=== PATIENT | female | born 1985 | race Caucasian/White ===

== ENCOUNTER 2020-10-20 17:49 | Outpatient (CLI) | payer OTHER, MEDICAID, SELFPAY | END 2020-10-20 18:42 | disposition home or self-care (01) | LOC: OB 10-21 07:11 | PROVIDERS: Referring Provider Family Medicine; Visit Provider Family Medicine | DX: O26.893 Other specified pregnancy related conditions, third trimester (principal); R07.81 Pleurodynia; Z3A.28 28 weeks gestation of pregnancy | CPT/HCPCS: 59025; G0378; G0379 ==

== ENCOUNTER → 2020-10-29 08:33 | Outpatient (CLI) | payer OTHER, MEDICAID, SELFPAY ==
--- NOTE | 2020-10-29 08:36 | DI.US.S_ITS ---
PROCEDURE: US OB LIMITED INDICATIONS: FOLLOW-UP PREVIA OUTSIDE/PRIOR DATING DATA: Last menstrual period (LMP): 04/05/2020. LMP-based estimated date of delivery (KAITLIN): 01/10/2021. First dating scan (date and location): 08/19/2020 at . Estimated date of delivery (KAITLIN) from first dating scan: 01/03/2021. TECHNIQUE: Real-time scanning was performed of the fetuses, with image documentation and biometric measurements. Endovaginal scanning: Performed COMPARISON: Outside Facility, RG, US OB DETAILED SGL FETUS, 08/19/2020, 9:50. FINDINGS: There is a single living intrauterine gestation. Based on the initial outside ultrasound, the estimated gestational age is 30 weeks 4 days. cardiac activity is present with heart rate 131 BPM. Amniotic fluid index is 14.8 cm. Placenta is posterior without previa. The inferior margin of the placenta is 4.2 cm from the internal os. Note is made of a nabothian cyst measuring 2.7 by 1.7 x 3.2 cm. IMPRESSION: 1. A single living intrauterine gestation with an estimated gestational age 30 weeks 4 days based on the initial outside dating ultrasound. 2. Placenta previa is resolved. The inferior margin of the placenta measures 4.2 cm from the internal os. Dictated by: Claudine Davis M.D. on 10/29/2020 at 15:17 Approved by: Claudine Davis M.D. on 10/29/2020 at 15:23
[2020-10-29 09:23] LABS: Hematocrit 37.3 % (36-46); Hemoglobin 12.8 g/dL (12.0-16.0)
[2020-10-29 10:33] LABS: GTT (PREG) 1 Hour PP 50gm Dose 122 mg/dL (76-139)
== END ==
PROVIDERS: Referring Provider Family Medicine; Visit Provider Family Medicine
DX: O44.02 Complete placenta previa NOS or without hemorrhage, second trimester (principal); Z3A.27 27 weeks gestation of pregnancy
CPT/HCPCS: 36415; 76815; 76817; 82950; 85014; 85018

== ENCOUNTER → 2020-12-15 10:21 | Outpatient (CLI) | payer OTHER, MEDICAID, SELFPAY ==
[2020-12-16 07:55] LABS: Strep Grp B PCR POS for Grp B Strep
== END ==
PROVIDERS: Visit Provider Family Medicine
DX: Z34.90 Encounter for supervision of normal pregnancy, unspecified, unspecified trimester (principal); Z3A.36 36 weeks gestation of pregnancy
CPT/HCPCS: 87653

== ENCOUNTER 2020-12-19 06:05 | Observation (INO) | payer OTHER, MEDICAID, SELFPAY ==
--- NOTE | 2020-12-19 06:36 | PM.OBTRLD ---
Visit Information Visit Information Date of evaluation: 12/19/20 Reason for Evaluation: Yes other Comments/Additional reasons for admission: Patient is a 27-year-old G1 para 0 at 37 weeks who comes in with complaints of right upper quadrant abdominal pain since Monday. Pain is severe in intensity constant. Made worse with position changes. Not associated with nausea vomiting food does not make it worse. Patient saw her massage therapist did not really help. She also tried heat different position changes. She has associated symptoms of shortness of breath. Some [place] contractions. She has not complained of headache or blurry vision she is not complaining of significant swelling. record reviewed. [facility] Medical History Anxiety Asthma Bronchitis Depression Former smoker GERD (gastroesophageal reflux disease) (~2017) Migraines Mitral valve prolapse (~2014) Surgical History History of mandibular surgery (~2018) History of placement of ear tubes [place] teeth extracted (~2006) Family History Mother Twin , mate stillborn Anxiety Depression Paranoid schizophrenia COPD (chronic obstructive pulmonary disease) Former smoker Adopted person Father COPD (chronic obstructive pulmonary disease) Smoker Grandmother Unknown family medical history Grandfather Unknown family medical history Grandmother Ovarian cancer Grandfather Unknown family medical history Family/Other Diabetes mellitus Brother Asthma Social History marital status: household members: spouse lives independently: Yes caregiver/support person: No housing: house pets and animals: No education level: college (AA degree.) occupational status: unemployed current occupational exposures/hazards: No special polo needs: No seatbelt use: always do you feel safe at home: Yes Smoking Status: Former smoker (Smoked until 2011. ) Tobacco: How many years used: 6 quit status: has quit before second hand exposure: No alcohol intake: former (Rare to occasional when not . ) substance use type: marijuana (Quit with .) during the past year weight has: remained stable well-balanced diet: daily or most days daily servings fruits/ve-4 caffeine: No Type(s) of exercise: walking, other (Stretches on exercise ball. ) and normal ROM and activity frequency: daily duration: 15-30 minutes/day Exam Vital Signs (past 8 hours): . General: Alert no apparent distress. Affect is appropriate. Анна it is uncomfortable. HEENT: Neck is supple without lymphadenopathy pupils equal round and reactive. Cardio: S1-S2 regular rate and rhythm. Respiratory: Lungs clear to auscultation. Abdomen: Gravid. Extremities: Normal deep tendon reflexes trace edema. [place]: Sporadic contractions which are not felt by the patient heart tones: heart tones 135 Diagnosis, Plan/Disposition Plan/Disposition Plan: 35-year-old G1 para 0 at 37 weeks gestational age with right upper quadrant pain. heart tracings look good. Some mild intermittent correct contractions patient's blood pressure is stable she is not having visual changes or headache. Would recommend ordering a liver enzyme panel. An ultrasound to rule out significant gallbladder disease. Provide some Tylenol for pain relief and hydrocodone if needed. Will follow with ultrasound results and laboratory tests.
--- NOTE | 2020-12-19 06:37 | DI.US.S_ITS ---
PROCEDURE: US ABDOMEN LIMITED INDICATIONS: RIGHT UPPER QUADRANT/FLANK PAIN TECHNIQUE: Real-time focused scanning was performed of the abdomen, with image documentation. COMPARISON: None. FINDINGS: The liver is prominent size and demonstrates normal echogenicity. No findings of gallstones or sludge are seen. The gallbladder wall is not thickened, measuring 3 mm or less. No specific pericholecystic fluid is seen. The sonographic Sofia sign is negative. There is no biliary dilatation, the common bile duct measures 6 mm. No significant pancreatic abnormality is seen on these images. The right kidney demonstrates severe hydronephrosis, with the proximal ureter measuring 1.5 cm. There is a stone seen within the proximal ureter that measures 8 mm, which appears nonobstructing. This patient is , with a measured heartbeat of 137 beats per minute. IMPRESSION: There is severe right-sided hydronephrosis, with the proximal ureter measuring 1.5 cm. An 8 mm stone is seen within the proximal ureter, which appears nonobstructing. Dictated by: Anil Crouch M.D. on 12/19/2020 at 7:14 Approved by: Anil Crouch M.D. on 12/19/2020 at 7:17
[2020-12-19 07:05] LABS: Alanine Aminotransferase 15 IU/L (<35); Albumin 3.2 g/dL (3.5-5.0); Albumin Globulin Ratio 1.1 (1.0-2.8); Alkaline Phosphatase 112 U/L (38-126); Aspartate Aminotransferase 26 IU/L (14-36); Bilirubin Total 0.4 mg/dL (0.2-1.3); Bilirubin Unconjugated 0.3 mg/dL (0.0-1.1); Globulin 2.9 g/dL (1.7-4.1); HEMOLYSIS < 15 (0-50); Total Protein 6.1 g/dL (6.3-8.2)
[2020-12-19] MEDS: ACETAMINOPHEN 325 MG TABLET 650 MG PO (07:19)
[2020-12-19 08:45] LABS: RBC Urine None Seen (0-5/HPF)
[2020-12-19] MEDS: OXYCODONE IR 5 MG TABLET PO (08:50)
[2020-12-19 08:59] LABS: Appearance Urine UA CLEAR; Bilirubin Urine UA NEGATIVE (NEGATIVE); Color Urine UA YELLOW; Glucose Urine UA NEGATIVE (Negative); Ketones Urine UA NEGATIVE (NEGATIVE); Leukocyte Esterase Urine UA 2+ (NEGATIVE); Nitrite Urine UA NEGATIVE (Negative); Occult Blood Urine UA NEGATIVE (Negative); Protein Urine UA NEGATIVE (Negative); Specific Gravity Urine UA <=1.005 (1.000-1.035); Urobilinogen Urine UA 0.2 E.U./dL (0.2)
[2020-12-19 09:01] LABS: pH Urine UA 6.5 (4.5-8.0)
[2020-12-19 09:09] LABS: Bacteria Urine Moderate (10-30); Culture Indicated Urine Specimen Cultured; Squamous Epithelial Cell Urine 1-5 /HPF (0-5/HPF); WBC Urine 5-10/HPF (0-5/HPF)
[2020-12-22 11:03] LABS: BUN Creatinine Ratio 13.3 (6-22); Blood Urea Nitrogen 6 mg/dL (7-17); Carbon Dioxide 22 mmol/L (22-32); Chloride 107 mmol/L (98-107); Estimated Glomerular Filt Rate > 60.0 mL/min (>60); Glucose 85 mg/dL (70-100); Potassium 3.8 mmol/L (3.4-5.1); Sodium 134 mmol/L (137-145)
== END 2020-12-19 09:31 | disposition home or self-care (01) ==
PROVIDERS: Admitting Provider Family Medicine; Referring Provider Family Medicine; Visit Provider Family Medicine
DX: O26.893 Other specified pregnancy related conditions, third trimester (principal); N13.2 Hydronephrosis with renal and ureteral calculous obstruction; Z3A.37 37 weeks gestation of pregnancy
CPT/HCPCS: 36415; 59025; 76705; 80048; 80076; 81001; 87086; G0378; G0379

== ENCOUNTER 2020-12-28 18:34 | Observation (INO) | payer OTHER, MEDICAID, SELFPAY ==
[2020-12-28 20:13] VITALS: BP 102/67
[2020-12-28 21:36] LABS: COVID19 - ADMIT (NP swab/PCR) Negative (Negative)
--- NOTE | 2020-12-29 07:19 | P.HPOB_ITS ---
OB HPI Date/Time Date of admission: 12/29/20 Date Patient Seen: 12/29/20 Time Patient Seen: 07:30 History of Present Condition Chief complaint: : 1 Para: 0 Estimated Date of Delivery: 01/09/21 Estimated Gestational Age (weeks): 38w3d Narrative: Mally Tobias is a 35 year old at 38 weeks and 2 days here for induction due to symptomatic nephrolithiasis diagnosed at 37 weeks. She has been managing with Tylenol and rare oxycodone. She is also taking Flomax to help facilitate stone passage but no success yet. Case was discussed with Dr. Nieto with medical artist who recommended induction then referral to Urology for intervention on the stone. Patient has been without signs of infection and pain has been manageable with primarily Tylenol as above. has been uncomplicated otherwise. She does have a history of psychiatric hospitalization last fall but depression has been quite stable thr oughout the without medication. There was a partial placenta previa on her 20 week ultrasound which resolved on follow-up imaging. She transferred care from [facility] at 27 weeks. Indications Indication for induction OB: medical complication (Nephrolithiasis) History of Present care: initiated at week # (7), number of visits (17) and pounds weight gain (55) Dating criteria: LMP confirmed by 1st trimester US Ultrasounds: normal mid trimester US (Partial previa resolved on follow up US) Obstetrical complications: none Medical complications: other (Nephrolithiasis) Preadmission Labs Blood type: A (+) positive -: Antibody screen: negative, GBS status: positive, HBsAG: negative and HIV: negative -: Chlamydia screen: not detected and Gonorrhea screen: not detected -: Rubella: immune HCT: 37.3 PAP: Normal Quad screen: Normal Urine: Neg 1 hr GTT: 122 Evaluation Evaluation Baseline heart rate: 125 Variability: Moderate (11-25) monitor accelerations: Present Monitor Decelerations: Absent Contraction Frequency (minutes): 2 Uterine Contraction Intensity: Moderate Status: Category l Laboratory results: Laboratory Tests 12/28/20 12/28/20 20:05 20:30 SARS-CoV-2 (PCR) Negative Blood Type A Positive Antibody Screen Negative [facility] Medical History Anxiety Asthma Bronchitis Depression Former smoker GERD (gastroesophageal reflux disease) (~2017) Migraines Mitral valve prolapse (~2014) Surgical History History of mandibular surgery (~2018) History of placement of ear tubes [place] teeth extracted (~2006) Family History Mother Twin , mate stillborn Anxiety Depression Paranoid schizophrenia COPD (chronic obstructive pulmonary disease) Former smoker Adopted person Father COPD (chronic obstructive pulmonary disease) Smoker Grandmother Unknown family medical history Grandfather Unknown family medical history Grandmother Ovarian cancer Grandfather Unknown family medical history Family/Other Diabetes mellitus Brother Asthma Social History marital status: household members: spouse lives independently: Yes caregiver/support person: No housing: house pets and animals: No education level: college (AA degree.) occupational status: unemployed current occupational exposures/hazards: No special polo needs: No seatbelt use: always do you feel safe at home: Yes Smoking Status: Former smoker Tobacco: How many years used: 6 quit status: has quit before second hand exposure: No alcohol intake: former (Rare to occasional when not . ) substance use type: marijuana (Quit with .) during the past year weight has: remained stable well-balanced diet: daily or most days daily servings fruits/ve-4 caffeine: No Type(s) of exercise: walking, other (Stretches on exercise ball. ) and normal ROM and activity frequency: daily duration: 15-30 minutes/day Meds Home Medications and Allergies Home Medications Medication Instructions Recorded Confirmed Type prenat.vits,win,[id number] 1 tab PO DAILY #30 tab 10/12/20 12/28/20 Rx ondansetron HCl [Zofran] 4 mg PO Q8H PRN #7 tab 12/19/20 12/28/20 Rx oxycodone 5 mg PO TID PRN #20 cap 12/19/20 12/28/20 Rx tamsulosin 0.4 mg capsule 0.4 mg PO BEDTIME #30 cap 12/22/20 12/28/20 Rx Allergies Allergy/AdvReac Type Severity Reaction Status Date / Time hydrocodone AdvReac Intermediate vomiting Verified 10/08/20 10:08 Review of Systems Review of Systems ROS: Yes All systems reviewed with the patient and are negative except as otherwise documented Exam Vital Signs (past 8 hours): Temperature 36.3? blood pressure 109/59 heart rate 80 Const General: healthy appearing and comfortable [facility] Head: normal to inspection Ears: hearing grossly normal bilaterally Nose: external nose normal Face and sinus: normal facial exam Mouth: oral mucosae normal Eyes General: appearance normal, both eyes and all related structures Neck Neck: normal visual inspection Resp Effort & Inspection: normal respiratory effort Auscultation: clear to auscultation bilaterally Cardio Rate: regular rate Rhythm: regular rhythm Heart Sounds: no murmurs GI Other: Gravid External Female Exam: normal external appearance Manual OB Exam: dilated fingertip, effaced 75%, station -1 and other (Very uncomfortable with exams) Presentation: vertex Estimated Weight (lbs): 7 Back/Spine/Pelvis Back: normal to inspection Skin General: no rashes or lesions noted Extrem General: normal to inspection and no pedal edema Objective Labs Labs: Laboratory Results - last 24 hr 12/28/20 12/28/20 20:05 20:30 SARS-CoV-2 (PCR) Negative Blood Type A Positive Antibody Screen Negative Assessment and Plan Assessment and Plan Assessment and Plan narrative: Patient is a 35-year-old at 38 weeks and 3 days here for induction due to symptomatic nephrolithiasis diagnosed 37 weeks. Plan is to see Urology after delivery for possible intervention on the stone. She came in last night for Cervidil and has been shahbaz for several hours, just now beginning to feel more painful. Cervical exam this morning is FT/75/-1 posterior and soft. Considered placing a Garg bulb for further cervical ripening however she is quite uncomfortable with all exams and unlikely to tolerate Garg bulb placement. Since she is shahbaz and becoming more uncomfortable, will begin Pitocin. She is GBS positive so will plan to start penicillin once she is more active. She desires an epidural eventually.
[2020-12-29 09:00] LABS: Add Manual Diff / Slide Review NO; Basophils Absolute Auto 0 /uL (0-100); Basophils Percent Auto 0.3 % (0-2); Eosinophils Absolute Auto 100 /uL (0-450); Eosinophils Percent Auto 0.7 % (2-4); Hematocrit 34.2 % (36-46); Hemoglobin 11.3 g/dL (12.0-16.0); Lymphocytes Absolute Auto 1500 /uL (1100-4500); Lymphocytes Percent Auto 18.3 % (25-40); Mean Corpuscular Hemoglobin 28.4 PG (26-34); Mean Corpuscular Volume 86.1 fL (80-100); Monocytes Absolute Auto 600 /uL (0-900); Monocytes Percent Auto 7.5 % (3-14); Neutrophils Absolute Auto 5900 /uL (1500-7000); Neutrophils Percent Auto 73.2 % (50-75); Platelet Count 260 X10^3/uL (150-400); Red Blood Cell Count 3.97 X10^6/uL (4.0-5.2); Red Cell Distribution Width 14.6 % (11.6-14.8)
[2020-12-29] MEDS: OXYTOCIN PREMIX 30 UNIT/500 ML PLAST..BAG IV (09:17)
[2020-12-29] MEDS: LACTATED RINGERS 1,000 ML 100 ML IV (09:18)
--- NOTE | 2020-12-29 13:43 | P.DS_ITS ---
Discharge Providers Provider Date of admission: 12/28/20 18:34 Discharge Date: 12/29/20 Primary care physician: Doctor Raiza MD Discharge provider: Leela Chatterjee DO Summary Hospital Course Date Patient Seen: 12/29/20 Time Patient Seen: 13:00 Diagnoses: 38 weeks of Nephrolithiasis affecting Hospital Course: Patient is a 35-year-old at 38 weeks and 3 days gestation who came in for induction due to nephrolithiasis. She received Cervidil followed by Pitocin this morning. She was shahbaz regularly though not painfully. Sometime during the morning she went to urinate and passed a pea-sized stone. After passing the stone it was immediately easier to void and her right flank pain subsided considerably. Cervix was still quite posterior despite several hours of Pitocin and exam very uncomfortable for her. We discussed that since she passed the kidney stone and her flank pain significantly improved, there was no indication to continue the induction. She expressed her understanding and was excited to be able to go home and avoid induction. We will see her next week as scheduled. She will return to the center for regular painful contractions, leaking of fluid or vaginal bleeding. Both she and her were in agreement and appreciative of the plan. Fetus was category 1 throughout her time in the center. Discharge Diagnosis (1) 38 weeks gestation of : Status: Acute (2) Nephrolithiasis: Status: Acute Status at Discharge Cognitive/behavioral status at discharge: at baseline, oriented Overall status at discharge: patient is back to baseline Time Spent with Patient Time attestation: Total time spent providing and/or coordinating discharge services: Time spent: Less than 30 minutes Objective Labs Result Diagrams: 12/29/20 08:45 Labs: Laboratory Results - last 24 hr 12/28/20 12/28/20 12/29/20 20:05 20:30 08:45 WBC 8.0 RBC 3.97 L Hgb 11.3 L Hct 34.2 L MCV 86.1 MCH 28.4 MCHC 33.0 RDW 14.6 Plt Count 260 Neut % (Auto) 73.2 Lymph % (Auto) 18.3 L [place] % (Auto) 7.5 Eos % (Auto) 0.7 L Baso % (Auto) 0.3 Neut # (Auto) 5900 Lymph # (Auto) 1500 [place] # (Auto) 600 Eos # (Auto) 100 Baso # (Auto) 0 SARS-CoV-2 (PCR) Negative Blood Type A Positive Antibody Screen Negative Discharge Plan Discharge Plan Patient Disposition: Home Discharge orders & Medications Prescriptions: Continued prenat.vits,win,mkk-kwuh-pzlfr Tablet 1 tab PO DAILY Qty: 30 RF: 6 Discontinued tamsulosin 0.4 mg capsule 0.4 mg PO BEDTIME Qty: 30 RF: 0 oxycodone 5 mg capsule 5 mg PO TID PRN (Reason: pain) Qty: 20 RF: 0 ondansetron HCl [Zofran] 4 mg tablet 4 mg PO Q8H PRN (Reason: nausea and vomiting) Qty: 7 RF: 0 Follow up/Referrals: Raiza,Doctor, MD [Primary Care Provider] - Visit Report/Discharge Packet Visit Report Forms: Patient Portal/API, Stroke Signs & Symptoms Discharge Data Primary Care Provider: Doctor Raiza Attending Provider: Leela Chatterjee Admit Date/Time: 12/28/20 18:34 Discharges patient from system. Discharge Date/Time: 12/29/20 13:46
== END 2020-12-29 13:46 | disposition home or self-care (01) ==
PROVIDERS: Admitting Provider Family Medicine; Referring Provider Family Medicine; Visit Provider Family Medicine
DX: O99.891 Other specified diseases and conditions complicating pregnancy (principal); N20.0 Calculus of kidney; Z3A.38 38 weeks gestation of pregnancy; Z20.822 Contact with and (suspected) exposure to COVID-19; O99.820 Streptococcus B carrier state complicating pregnancy
CPT/HCPCS: 36415; 59025; 59050; 59200; 85025; 86850; 86900; 86901; 87635; 96360; C9803; G0378; G0379; J2590

== ENCOUNTER 2021-01-12 11:50 | Outpatient (CLI) | payer OTHER, MEDICAID, SELFPAY ==
--- NOTE | 2021-01-12 13:50 | PM.OBTRLD ---
Visit Information Visit Information Date of evaluation: 01/12/21 Primary OB Provider: Leela Chatterjee Reason for Evaluation: Yes non-stress test non-stress test reason: other (Postdates) Vital Signs Vital Signs: Blood pressure 110/68 heart rate 96 PFSH Medical History Anxiety Asthma Bronchitis Depression Former smoker GERD (gastroesophageal reflux disease) (~2017) Migraines Mitral valve prolapse (~2014) Surgical History History of mandibular surgery (~2018) History of placement of ear tubes [place] teeth extracted (~2006) Family History Mother Twin , mate stillborn Anxiety Depression Paranoid schizophrenia COPD (chronic obstructive pulmonary disease) Former smoker Adopted person Father COPD (chronic obstructive pulmonary disease) Smoker Grandmother Unknown family medical history Grandfather Unknown family medical history Grandmother Ovarian cancer Grandfather Unknown family medical history Family/Other Diabetes mellitus Brother Asthma Social History marital status: household members: spouse lives independently: Yes caregiver/support person: No housing: house pets and animals: No education level: college (AA degree.) occupational status: unemployed current occupational exposures/hazards: No special polo needs: No seatbelt use: always do you feel safe at home: Yes Smoking Status: Former smoker Tobacco: How many years used: 6 quit status: has quit before second hand exposure: No alcohol intake: former (Rare to occasional when not . ) substance use type: marijuana (Quit with .) during the past year weight has: remained stable well-balanced diet: daily or most days daily servings fruits/ve-4 caffeine: No Type(s) of exercise: walking, other (Stretches on exercise ball. ) and normal ROM and activity frequency: daily duration: 15-30 minutes/day Evaluation Evaluation Baseline heart rate: 140 Variability: Moderate (11-25) monitor accelerations: Present Monitor Decelerations: Absent Category of Tracing: Reactive Diagnosis, Plan/Disposition Final Diagnosis (1) 40 weeks gestation of : Status: Acute Plan/Disposition Plan: 35-year-old at 40 weeks and 3 days gestation. NST reactive. She is scheduled for post-dates induction on 01/18/21 if not delivered. Will repeat an NST at the end of this week when she is 41 weeks. OB Disposition: home
== END 2021-01-12 12:30 | disposition home or self-care (01) ==
LOC: OB 01-13 11:36
PROVIDERS: Referring Provider Family Medicine; Visit Provider Family Medicine
DX: O48.0 Post-term pregnancy (principal); Z3A.40 40 weeks gestation of pregnancy
CPT/HCPCS: 59025; G0378; G0379

== ENCOUNTER 2021-01-15 12:38 | Outpatient (CLI) | payer OTHER, MEDICAID, SELFPAY ==
--- NOTE | 2021-01-15 13:27 | PM.OBTRLD ---
Visit Information Visit Information Date of evaluation: 01/15/21 Primary OB Provider: Leela Chatterjee Reason for Evaluation: Yes non-stress test non-stress test reason: other (Postdates) Vital Signs Vital Signs: Blood pressure 36.3 heart rate 102 blood pressure 111/76 [facility] Medical History Anxiety Asthma Bronchitis Depression Former smoker GERD (gastroesophageal reflux disease) (~2017) Migraines Mitral valve prolapse (~2014) Surgical History History of mandibular surgery (~2018) History of placement of ear tubes [place] teeth extracted (~2006) Family History Mother Twin , mate stillborn Anxiety Depression Paranoid schizophrenia COPD (chronic obstructive pulmonary disease) Former smoker Adopted person Father COPD (chronic obstructive pulmonary disease) Smoker Grandmother Unknown family medical history Grandfather Unknown family medical history Grandmother Ovarian cancer Grandfather Unknown family medical history Family/Other Diabetes mellitus Brother Asthma Social History marital status: household members: spouse lives independently: Yes caregiver/support person: No housing: house pets and animals: No education level: college (AA degree.) occupational status: unemployed current occupational exposures/hazards: No special polo needs: No seatbelt use: always do you feel safe at home: Yes Smoking Status: Former smoker Tobacco: How many years used: 6 quit status: has quit before second hand exposure: No alcohol intake: former (Rare to occasional when not . ) substance use type: marijuana (Quit with .) during the past year weight has: remained stable well-balanced diet: daily or most days daily servings fruits/ve-4 caffeine: No Type(s) of exercise: walking, other (Stretches on exercise ball. ) and normal ROM and activity frequency: daily duration: 15-30 minutes/day Evaluation Evaluation Baseline heart rate: 130 Variability: Moderate (11-25) monitor accelerations: Present Monitor Decelerations: Absent Uterine Contraction Intensity: Mild Category of Tracing: Reactive Diagnosis, Plan/Disposition Plan/Disposition Plan: 35-year-old 40 weeks and 6 days gestation here for post-dates testing. NST reactive. She is scheduled for induction in 2 days. OB Disposition: home
== END 2021-01-15 13:10 | disposition home or self-care (01) ==
LOC: LABOR 12:59 → OB 01-18 14:46
PROVIDERS: Referring Provider Family Medicine; Visit Provider Family Medicine
DX: O48.0 Post-term pregnancy (principal); Z3A.40 40 weeks gestation of pregnancy
CPT/HCPCS: 59025; G0378; G0379

== ENCOUNTER 2021-01-16 14:09 | Outpatient (CLI) | payer OTHER, MEDICAID, SELFPAY ==
--- NOTE | 2021-01-16 14:42 | P.TNLD_ITS ---
Visit Information Visit Information Date of evaluation: 01/16/21 Primary OB Provider: Leela Chatterjee On-call OB Provider: Kanchan Nieto Reason for Evaluation: Yes rupture of membranes Vital Signs Vital Signs: Temperature 36.2? blood pressure 101/64 rate 86 PFSH Medical History Anxiety Asthma Bronchitis Depression Former smoker GERD (gastroesophageal reflux disease) (~2017) Migraines Mitral valve prolapse (~2014) Surgical History History of mandibular surgery (~2018) History of placement of ear tubes [place] teeth extracted (~2006) Family History Mother Twin , mate stillborn Anxiety Depression Paranoid schizophrenia COPD (chronic obstructive pulmonary disease) Former smoker Adopted person Father COPD (chronic obstructive pulmonary disease) Smoker Grandmother Unknown family medical history Grandfather Unknown family medical history Grandmother Ovarian cancer Grandfather Unknown family medical history Family/Other Diabetes mellitus Brother Asthma Social History marital status: household members: spouse lives independently: Yes caregiver/support person: No housing: house pets and animals: No education level: college (AA degree.) occupational status: unemployed current occupational exposures/hazards: No special polo needs: No seatbelt use: always do you feel safe at home: Yes Smoking Status: Former smoker Tobacco: How many years used: 6 quit status: has quit before second hand exposure: No alcohol intake: former (Rare to occasional when not . ) substance use type: marijuana (Quit with .) during the past year weight has: remained stable well-balanced diet: daily or most days daily servings fruits/ve-4 caffeine: No Type(s) of exercise: walking, other (Stretches on exercise ball. ) and normal ROM and activity frequency: daily duration: 15-30 minutes/day Evaluation Evaluation Baseline heart rate: 130 Variability: Moderate (11-25) monitor accelerations: Present Monitor Decelerations: Absent Category of Tracing: Reactive Non-invasive Membranes Rupture Test: negative Diagnosis, Plan/Disposition Final Diagnosis (1) 41 weeks gestation of : Status: Acute Plan/Disposition Plan: 35-year-old at 41 weeks gestation with concern for rupture membranes. AmniSure negative. NST reactive. Follow-up as scheduled tomorrow night for post-dates induction or sooner if needed. OB Disposition: home
== END 2021-01-16 15:05 | disposition home or self-care (01) ==
LOC: OB 01-18 14:46
PROVIDERS: Referring Provider Family Medicine; Visit Provider Family Medicine
DX: Z03.71 Encounter for suspected problem with amniotic cavity and membrane ruled out (principal); O48.0 Post-term pregnancy; Z3A.41 41 weeks gestation of pregnancy
CPT/HCPCS: 59025; 84112; G0378; G0379

== ENCOUNTER 2021-01-18 07:19 | Inpatient (IN) | payer OTHER, MEDICAID, SELFPAY ==
--- NOTE | 2021-01-18 07:51 | P.HPOB_ITS ---
OB HPI Date/Time Date of admission: 01/18/21 Date Patient Seen: 01/18/21 Time Patient Seen: 07:35 History of Present Condition Chief complaint: OBSERVATION OF LABOR : 1 Para: 0 Estimated Date of Delivery: 01/09/21 Estimated Gestational Age (weeks): 41w2d Narrative: Mally Tobias is a 35 year old at 41 weeks and 2 days gestation here for postdates induction. complicated by nephrolithiasis starting at 37 weeks. She came in for induction at 38 weeks due to severe pain from nephrolithiasis and passed the stone so was discharged home undelivered. Since then she was done very well. Reports good FM and denies bleeding or leaking. has been uncomplicated otherwise. She does have a history of psychiatric hospitalization last fall but depression has been quite stable throughout the without medication. There was a partial placenta previa on her 20 week ultrasound which resolved on follow-up imaging. She transferred care from [facility] at 27 weeks. Indications Indication for induction OB: post dates History of Present care: good care, initiated at week # (7), number of visits (19) and pounds weight gain (55) Dating criteria: LMP confirmed by 1st trimester US Ultrasounds: normal mid trimester US (Partial previa resolved on follow up US) Obstetrical complications: none Medical complications: other (Nephrolithiasis) Preadmission Labs Blood type: A (+) positive -: Antibody screen: negative, GBS status: positive, HBsAG: negative, HIV: negative and RPR/VDLR: negative -: Chlamydia screen: not detected and Gonorrhea screen: not detected -: Rubella: immune HCT: 37.3 PAP: Normal Quad screen: Normal 1 hr GTT: 122 Evaluation Evaluation Baseline heart rate: 150 Variability: Moderate (11-25) monitor accelerations: Present Monitor Decelerations: Absent Category of Tracing: Reactive Cervical dilation (cm): 0 Cervical effacement (%): 60 station: -1 PFSH Medical History Anxiety Asthma Bronchitis Depression Former smoker GERD (gastroesophageal reflux disease) (~2017) Migraines Mitral valve prolapse (~2014) Surgical History History of mandibular surgery (~2018) History of placement of ear tubes [place] teeth extracted (~2006) Family History Mother Twin , mate stillborn Anxiety Depression Paranoid schizophrenia COPD (chronic obstructive pulmonary disease) Former smoker Adopted person Father COPD (chronic obstructive pulmonary disease) Smoker Grandmother Unknown family medical history Grandfather Unknown family medical history Grandmother Ovarian cancer Grandfather Unknown family medical history Family/Other Diabetes mellitus Brother Asthma Social History marital status: household members: spouse lives independently: Yes caregiver/support person: No housing: house pets and animals: No education level: college (AA degree.) occupational status: unemployed current occupational exposures/hazards: No special polo needs: No seatbelt use: always do you feel safe at home: Yes Smoking Status: Never smoker Tobacco: How many years used: 6 quit status: has quit before second hand exposure: No alcohol intake: former (Rare to occasional when not . ) substance use type: marijuana (Quit with .) during the past year weight has: remained stable well-balanced diet: daily or most days daily servings fruits/ve-4 caffeine: No Type(s) of exercise: walking, other (Stretches on exercise ball. ) and normal ROM and activity frequency: daily duration: 15-30 minutes/day Meds Home Medications and Allergies Home Medications Medication Instructions Recorded Confirmed Type prenat.vits,win,[id number] 1 tab PO DAILY #30 tab 10/12/20 01/18/21 Rx Allergies Allergy/AdvReac Type Severity Reaction Status Date / Time hydrocodone AdvReac Intermediate vomiting Verified 01/12/21 09:54 Review of Systems Review of Systems ROS: Yes All systems reviewed with the patient and are negative except as otherwise documented Exam Vital Signs (past 8 hours): Temperature 36.2? blood pressure 100/65 heart rate 99 Const General: healthy appearing and comfortable HENMT Head: normal to inspection Ears: hearing grossly normal bilaterally Nose: external nose normal Face and sinus: normal facial exam Mouth: oral mucosae normal Eyes General: appearance normal, both eyes and all related structures Neck Neck: normal visual inspection Resp Effort & Inspection: normal respiratory effort Auscultation: clear to auscultation bilaterally Cardio Rate: regular rate Rhythm: regular rhythm Heart Sounds: no murmurs GI Other: Gravid External Female Exam: normal external appearance Manual OB Exam: dilated fingertip, effaced (60) and station -1 Presentation: vertex Estimated Weight (lbs): 8 Back/Spine/Pelvis Back: normal to inspection Skin General: no rashes or lesions noted Extrem General: normal to inspection and no pedal edema Objective Labs Result Diagrams: 01/18/21 08:40 Assessment and Plan Assessment and Plan Assessment and Plan narrative: 35 year old at 41 weeks and 2 days for postdates induction. A+, GBS+. She was to come in last night for cervical ripening however was unable due to staffing issues in the center. Plan Cytotec for cervical ripening Will need GBS prophylaxis once in active labor Epidural upon request Anticipate vaginal delivery
[2021-01-18] MEDS: miSOPROStoL 25 MCG TABLET VAG ×2 (08:28→12:45)
[2021-01-18 09:05] LABS: Add Manual Diff / Slide Review NO; Basophils Absolute Auto 0 /uL (0-100); Basophils Percent Auto 0.5 % (0-2); Eosinophils Absolute Auto 100 /uL (0-450); Eosinophils Percent Auto 1.1 % (2-4); Hematocrit 31.9 % (36-46); Hemoglobin 10.6 g/dL (12.0-16.0); Lymphocytes Absolute Auto 1400 /uL (1100-4500); Lymphocytes Percent Auto 21.9 % (25-40); Mean Corpuscular HGB Conc 33.1 % (30-36); Mean Corpuscular Hemoglobin 27.7 PG (26-34); Mean Corpuscular Volume 83.5 fL (80-100); Monocytes Absolute Auto 500 /uL (0-900); Monocytes Percent Auto 8.3 % (3-14); Neutrophils Absolute Auto 4300 /uL (1500-7000); Neutrophils Percent Auto 68.2 % (50-75); Platelet Count 265 X10^3/uL (150-400); Red Blood Cell Count 3.82 X10^6/uL (4.0-5.2); Red Cell Distribution Width 15.1 % (11.6-14.8); White Blood Cell Count 6.3 X10^3/uL (4.5-11.0)
[2021-01-18 09:33] VITALS: BP 100/65
[2021-01-18 10:21] LABS: COVID19 - ADMIT (NP swab/PCR) Negative (Negative)
--- NOTE | 2021-01-18 17:26 | PM.OBPNLAB ---
Date/Time Date Patient Seen: 01/18/21 Time Patient Seen: 17:00 Pain Control Comments: Feeling cramping, rates pain 4-5/10. Pelvic Exam Dilation (cm): 2 Effacement (%): 80 station: 0 Contractions Contraction frequency (min): 2 Status status: Category l Heart Rate Baseline: 140 Monitor Accelerations: Present Monitor Decelerations: Absent Monitor Variability: Moderate Assessment and Plan Comments: 35 year old at 41+2 here for postdates induction. She is now shahbaz q2 min after 2 doses of Cytotec and feeling cramping. Dr. Carl consulted for parisi bulb placement since she is shahbaz too frequently for Cytotec or Pitocin. Discussed with patient and her that parisi bulb will either fall out at 4 cm, be removed with rupture of membranes or be removed after 12 hours. Will start GBS prophylaxis now.
[2021-01-18] MEDS: LACTATED RINGERS 1,000 ML 100 ML IV ×2 (17:50→22:14)
[2021-01-18] MEDS: PENICILLIN G POTASSIUM 5,000,000 UNIT in DEXTROSE 5% IN WATER 250 ML IV (17:50)
--- NOTE | 2021-01-18 20:25 | PM.AN.REGBLK ---
Regional Block Pre-procedure Procedure: Continuous Lumbar Epidural for L&D Attending OB provider: Leela Chatterjee PMH/ROS narrative: G1 induced post-dates, h/o previa but resolved on subsequent U/S, nephrolithiasis during . H/o MDD. Hx: No personal or family history of anesthesia problems. PSH/Anesthesia history narrative: none Exam narrative: MP2, RRR CTAB ASA Class: II Labs: Hct 31.9 % (36-46) L 01/18/21 08:40 Plt Count 265 X10^3/uL (150-400) 01/18/21 08:40 Medications: Current Medications Generic Name Dose Route Start Last Admin Trade Name Freq PRN Reason Stop Dose Admin Calcium Carbonate 1,000 mg 01/18/21 07:42 Calcium Carbonate 500 Mg Tab PO Q2HR PRN Dyspepsia Carboprost Tromethamine 250 mcg 01/18/21 07:42 Carboprost 250 Mcg/Ml Ampul IM Q90M PRN Bleeding Fentanyl 50 mcg 01/18/21 17:47 Fentanyl 100 Mcg/2 Ml Inj IV Q1H PRN Pain, Severe (7-10) Fentanyl 100 mcg 01/18/21 17:48 Fentanyl 100 Mcg/2 Ml Inj IV Q1H PRN Pain, Severe (7-10) Lactated Ringer's 1,000 mls @ 100 mls/hr 01/18/21 07:45 01/18/21 17:50 Lactated Ringers IV 100 mls/hr CONT KARTHIK Administration Oxytocin/Lactated Ringer's 30 unit in 500 mls @ 200 mls/hr 01/18/21 07:42 Oxytocin Premix IV CONT PRN Bleeding Protocol Oxytocin/Lactated Ringer's 30 unit in 500 mls @ 3 mls/hr 01/18/21 07:45 Oxytocin Premix IV TITRATE KARTHIK Protocol 3 MILLIUNIT/MIN Tranexamic Acid 1,000 mg/ 100 mls @ 200 mls/hr 01/18/21 07:42 Sodium Chloride IV NOW PRN Bleeding Penicillin G Potassium 3,000,000 unit in 50 mls @ 100 mls/hr 01/18/21 22:00 Penicillin G Potassium IV Q4H [id number] Methylergonovine Maleate 0.2 mg 01/18/21 07:42 Methylergonovine 0.2 Mg/Ml Vial IM NOW PRN Bleeding Methylergonovine Maleate 0.2 mg 01/18/21 07:42 Methylergonovine 0.2 Mg Tablet PO Q6HR PRN Heavy Bleeding Misoprostol 400 mcg 01/18/21 07:42 Misoprostol 200 Mcg Tablet SL NOW PRN Bleeding Misoprostol 800 mcg 01/18/21 07:42 Misoprostol 200 Mcg Tablet RI NOW PRN Bleeding Misoprostol 1,000 mcg 01/18/21 07:42 Misoprostol 200 Mcg Tablet RI NOW PRN Bleeding Misoprostol 25 mcg 01/18/21 09:00 01/18/21 12:45 Misoprostol 25 Mcg Tablet VAG 25 mcg Q4HR KARTHIK Administration Ondansetron HCl 4 mg 01/18/21 07:42 Ondansetron 4 Mg/2 Ml Inj IV Q4HR PRN Nausea And Vomiting Oxytocin 10 unit 01/18/21 07:42 Oxytocin 10 Unit/Ml Vial IM NOW PRN Bleeding Allergies: Allergies Allergy/AdvReac Type Severity Reaction Status Date / Time hydrocodone AdvReac Intermediate vomiting Verified 01/12/21 09:54 Procedure Insertion date: 01/18/21 Insertion time: 20:00 Prep/Local: betadine x3 (chloroprep) and 1% lidocaine Interspace: L2-3 Patient position: sitting Needle: 18 gauge Va Loss of resistance with: saline BIANKA at (cm): 5 Catheter placed at SKIN (cm): 10 Catheter in SPACE (cm): 5 Insertion: Yes CSF Initial Medications TEST DOSE: 1.5% lidocaine with epinephrine 1:200k (mL): 5 BOLUS DOSE (mL): 2 BOLUS DOSE med: other (10mcg fentanyl intrathecally, 90mcg fentanyl via epidural catheter) Infusion INFUSION: 0.0625% bupivacaine and with fentanyl 2 mcg/mL Initial rate (mL/hr): 12 Post-procedure Anesthesia time START: 19:44 Anesthesia time END: 02:54 Post-procedure Anesthesia Assessment: Yes CV function: HR/BP stable, Yes Resp function: RR/sat/airway adequate, Yes Post-op hydration adequate, Yes Pain control adequate, Yes Nausea & vomiting absent, Yes Temperature > 36 C, Yes Mental status appropriate and No Anesthesia complications
[2021-01-18] MEDS: PENICILLIN G POTASSIUM 3,000,000 UNIT/50 ML FROZ.PIGGY 100 UNIT IV (22:14)
[2021-01-19] MEDS: LIDOCAINE 1% 20 ML (03:15)
--- NOTE | 2021-01-19 03:23 | PM.OBPRVD ---
Labor & Delivery Delivery date: 01/19/21 Cervical ripening method: per misoprostal protocol Delivery augmentation: rupture of membranes Delivery monitor: external FHT Route of delivery: L&D Laceration Description: Vaginal - 2nd Degree Delivery repair: vicryl Estimated blood loss (mL): 400 Anesthesia Type: Epidural Narrative: VAGINAL DELIVERY NOTE Patient is a 35-year-old at 41 weeks and 3 days who gave on 01/19/21 at 2:54. KAITLIN: 01/09/21 Hospital problems: 41 weeks of GBS positive Epidural analgesia STAGE I: Labor Patient presented for post-dates induction and received Cytotec. After her second dose of Cytotec she was shahbaz regularly on her own though not uncomfortable. The decision was made to place Garg bulb for further cervical ripening since she was shahbaz too frequently for additional Cytotec or Pitocin. After placement patient became very uncomfortable. Spontaneous rupture membranes occurred at 6:30 p.m. and Garg bulb removed. Fluid was clear. Patient went on to receive an epidural with excellent pain control. She was complete at 11:52 p.m. heart tones were category 1 throughout stage I. Stage I duration 5 hours and 20 minutes. STAGE II: Delivery Patient was complete and pushed for 3 hours. Spontaneous vaginal delivery occurred at 2:54 a.m.. Infant was vertex and MANOLO. There was a double nuchal cord which was reduced and remainder of delivered. Infant was immediately placed on mother's abdomen after delivery. Cord was clamped and cut after 1 minutes delay. Apgars were 8 and 9. No resuscitation required beyond drying and stimulating. weight 3906 g. STAGE III: Placenta/Cord Placenta delivered at 3:03 a.m. after active management and appeared intact with a three-vessel cord. IV Pitocin bolus given after delivery. A short second-degree vaginal laceration was repaired in the usual fashion with 4-0 Vicryl. The superficial periurethral laceration was not repaired but hemostasis assured. Fundus was firm well below umbilicus after delivery. EBL: 400 mL. Needle and sponge counts were correct. The vagina was inspected and no items were left in situ. Patient was doing well with Dave, her and at bedside. Baby 1: gender: Male Presentation: vertex Placenta delivery description: Spontaneous Cord Vessel Description: Nuchal Cord (x2, reduced) score (1 min): 8 score (5 min): 9 Plan for aftercare: Routine care
[2021-01-19] MEDS: IBUPROFEN 600 MG TABLET PO ×4 (04:51→23:45)
[2021-01-19] MEDS: ACETAMINOPHEN 325 MG TABLET 650 MG PO ×4 (04:51→23:44)
[2021-01-19] MEDS: DERMOPLAST SPRAY 20% 60 ML 1 SPRAY TOP (04:55)
[2021-01-19 07:50] VITALS: BP 126/86
[2021-01-19] MEDS: PRENATAL VIT,CALC/IRON/FOLIC 1 TABLET 1 TAB PO (09:08)
[2021-01-19] MEDS: LANOLIN OINT 7 GM 1 APPLIC TOP (09:08)
[2021-01-19] MEDS: DOCUSATE 100 MG CAPSULE PO (09:08)
[2021-01-19 11:52] VITALS: TEMP 37.4
[2021-01-19 11:55] VITALS: TEMP 37.4
[2021-01-19 17:38] VITALS: TEMP 37.4
[2021-01-19 17:40] VITALS: TEMP 37.4
--- NOTE | 2021-01-20 06:47 | P.DS_ITS ---
Discharge Providers Provider Date of admission: 01/18/21 07:19 Discharge Date: 01/20/21 Primary care physician: Doctor Raiza MD Consults: 01/20/21 03:26 Consult to Horticulture Superintendent Routine Comment: Discharge provider: Leela Chatterjee DO Summary Hospital Course Diagnoses: 41 weeks of Spontaneous vaginal delivery GBS positive Epidural analgesia Hospital Course: 35 year old G1 now P1 after uncomplicated at 41 weeks and 4 days on 01/19/21. Patient was brought in for postdates induction and progressed well after 2 doses of Cytotec and parisi bulb. She received an epidural with good pain control and went on to deliver a vigorous male. She was GBS positive and received adequate antibiotic prophylaxis prior to delivery. course uncomplicated. Patient was ambulating, voiding, eating and passing flatus. Vaginal bleeding decreasing. Pain control with ibuprofen and Tylenol. was off to a good start with support and nipple shield. Patient advised to call for bleeding, severe pain or bleeding through a pad an hour. Follow up in six weeks or sooner if needed. Peripartum Data Infant Delivery Method: Natural Vaginal Laceration Description: Vaginal - 2nd Degree 1: Gender: Male Disposition of : home Discharge Diagnosis (1) 41 weeks gestation of : Status: Acute (2) Spontaneous vaginal delivery: Status: Acute Status at Discharge Cognitive/behavioral status at discharge: at baseline, oriented Functional status at discharge: independent ambulation Overall status at discharge: patient is progressing back to baseline Time Spent with Patient Time attestation: Total time spent providing and/or coordinating discharge services: Time spent: Less than 30 minutes Objective Labs Result Diagrams: 01/20/21 06:43 Exam Vital Signs (past 8 hours): Temperature 98.2 blood pressure 108/79 heart rate 76 respirations 18 Narrative Exam Narrative: General: Awake and alert, no acute distress. HEENT: NCAT, EOMI, moist oral mucosa CV: Regular rate and rhythm, no murmurs, rubs or gallops Lungs: CTAB, no wheezes, rales, or rhonchi Abdomen: Soft, nontender; bowel tones active; uterus firm 1 cm below umbilicus Extremities: Warm, no edema, 2+ pedal pulses bilaterally Discharge Plan Discharge Plan Patient Disposition: Home Discharge orders & Medications Prescriptions: New docusate sodium [DOK] 100 mg Capsule 100 mg PO DAILY Qty: 30 RF: 0 ibuprofen 600 mg Tablet 600 mg PO Q6HR PRN (Reason: Pain, Mild (1-3)) Qty: 30 RF: 0 Discontinued prenat.vits,win,[id number] Tablet 1 tab PO DAILY Qty: 30 RF: 6 Follow up/Referrals: Miscellaneous,Doctor, [Primary Care Provider] - Leela Chatterjee DO [Physician] - 6 Weeks (Follow up with Dr. Chatterjee on Monday03/01/21 at 10:45am) Visit Report/Discharge Packet Stand Alone Forms: Discharge: Care Visit Report Forms: Patient Portal/API, Stroke Signs & Symptoms Discharge Data Primary Care Provider: Makaylacellaneous,Doctor Discharges patient from system. Discharge Date/Time: 01/20/21 11:15
[2021-01-20 06:51] LABS: Hematocrit 26.4 % (36-46); Hemoglobin 8.7 g/dL (12.0-16.0)
[2021-01-20] MEDS: PRENATAL VIT,CALC/IRON/FOLIC 1 TABLET 1 TAB PO (07:57)
[2021-01-20] MEDS: IBUPROFEN 600 MG TABLET PO (07:58)
[2021-01-20] MEDS: DOCUSATE 100 MG CAPSULE PO (07:58)
[2021-01-20] MEDS: ACETAMINOPHEN 325 MG TABLET 650 MG PO (07:58)
[2021-01-20 12:08] VITALS: BP 126/86; TEMP 37.4
== END 2021-01-20 11:15 | disposition home or self-care (01) | DRG 560 ==
PROVIDERS: Admitting Provider Family Medicine; Referring Provider Family Medicine; Visit Provider Family Medicine
DX: O48.0 Post-term pregnancy (principal); Z3A.41 41 weeks gestation of pregnancy; Z37.0 Single live birth; O70.1 Second degree perineal laceration during delivery; O69.81X0 Labor and delivery complicated by cord around neck, without compression, not applicable or unspecified; O99.824 Streptococcus B carrier state complicating childbirth
CPT/HCPCS: 01967; 36415; 59050; 59409; 85014; 85018; 85025; 86850; 86900; 86901; 87635; C9803; G0379; J2540

== ENCOUNTER → 2022-07-06 12:23 | Outpatient (CLI) | payer OTHER, MEDICAID, SELFPAY ==
[2022-07-06 14:00] LABS: Influenza A - CEPHEID Flu A NEGATIVE (NEGATIVE); Influenza B - CEPHEID Flu B NEGATIVE (NEGATIVE); Respiratory Syncytial Virus Negative (Negative)
[2022-07-06 14:08] LABS: COVID-19 CEPHEID 4-PLEX PCR Negative (Negative)
== END ==
PROVIDERS: Visit Provider Registered Nurse
DX: R05.1 Acute cough (principal); Z20.822 Contact with and (suspected) exposure to COVID-19
CPT/HCPCS: 0241U

== ENCOUNTER 2022-12-25 12:49 | Emergency (ER) | payer SELFPAY ==
[2022-12-25] VITALS (8 sets, daily range): BP systolic 98–118; BP diastolic 55–69; PULSE 57–85; RESP 16–18; TEMP 36.4; O2SAT 96–100; BMI 27.4
[2022-12-25 13:48] LABS: Add Manual Diff / Slide Review NO; Basophils Absolute Auto 0 /uL (0-100); Basophils Percent Auto 0.7 % (0-2); Eosinophils Absolute Auto 0 /uL (0-450); Eosinophils Percent Auto 0.6 % (2-4); Hematocrit 42.4 % (36-46); Hemoglobin 14.3 g/dL (12.0-16.0); Lymphocytes Absolute Auto 2100 /uL (1100-4500); Lymphocytes Percent Auto 35.4 % (25-40); Mean Corpuscular HGB Conc 33.7 % (30-36); Mean Corpuscular Hemoglobin 29.2 PG (26-34); Mean Corpuscular Volume 86.9 fL (80-100); Monocytes Absolute Auto 500 /uL (0-900); Monocytes Percent Auto 8.1 % (3-14); Neutrophils Absolute Auto 3300 /uL (1500-7000); Neutrophils Percent Auto 55.2 % (50-75); Platelet Count 208 X10^3/uL (150-400); Red Blood Cell Count 4.88 X10^6/uL (4.0-5.2); Red Cell Distribution Width 13.5 % (11.6-14.8); White Blood Cell Count 5.9 X10^3/uL (4.5-11.0)
[2022-12-25] MEDS: ONDANSETRON 4 MG/2 ML INJ IV (13:48)
[2022-12-25 13:58] LABS: Alanine Aminotransferase 18 IU/L (<35); Albumin 4.5 g/dL (3.5-5.0); Albumin Globulin Ratio 1.6 (1.0-2.8); Alkaline Phosphatase 54 U/L (38-126); Aspartate Aminotransferase 23 IU/L (14-36); BUN Creatinine Ratio 17.8 (6-22); Bilirubin Total 1.2 mg/dL (0.2-1.3); Blood Urea Nitrogen 13 mg/dL (7-17); Calcium 9.1 mg/dL (8.4-10.2); Carbon Dioxide 23 mmol/L (22-32); Chloride 106 mmol/L (98-107); Estimated Glomerular Filt Rate > 60 mL/min (>60); Globulin 2.8 g/dL (1.7-4.1); Glucose 87 mg/dL (70-100); HEMOLYSIS < 15 (0-50); Lipase 76 U/L (23-300); Potassium 3.5 mmol/L (3.4-5.1); Sodium 137 mmol/L (137-145); Total Protein 7.3 g/dL (6.3-8.2)
[2022-12-25 14:24] LABS: Bacteria Urine Moderate (10-30); Culture Indicated Urine Specimen Cultured; RBC Urine None Seen (0-5/HPF); Squamous Epithelial Cell Urine 1-5 /HPF (0-5/HPF); WBC Urine 5-10/HPF (0-5/HPF)
[2022-12-25] MEDS: KETOROLAC 30 MG/ML VIAL 15 MG IV (15:37)
--- NOTE | 2022-12-25 15:41 | DI.CT.S_ITS ---
PROCEDURE: CT ABDOMEN PELVIS W CON INDICATIONS: Right sided pain TECHNIQUE: After the administration of intravenous contrast, axial sections acquired from the lung bases to the pubic symphysis. Coronal and sagittal reformats were performed. For radiation dose reduction, the following was used: automated exposure control, adjustment of mA and/or kV according to patient size. COMPARISON: None. FINDINGS: Image quality: Excellent. Lung bases: Unremarkable. Heart: No significant findings. ABDOMEN: Liver: Subcentimeter hypodensity within the dome of the left hepatic lobe too small to further characterize but likely represents a hepatic cyst. This is of unlikely clinical significance. Liver is otherwise normal. Gallbladder: Unremarkable Biliary ducts: Unremarkable. Pancreas: Unremarkable. Spleen: Unremarkable. Adrenal Glands: Unremarkable. Kidneys and Ureters: Unremarkable. Stomach and Bowel: Stomach, small bowel loops, and colon are unremarkable. Appendix is normal. Peritoneum: No abnormal intraperitoneal fluid. No free air. Ventral Wall: No hernias. Abdominal Nodes: No retroperitoneal or mesenteric adenopathy by size criteria. Vessels: Aorta and inferior vena cava are normal in size. PELVIS: Pelvic Organs: Uterus is unremarkable. No suspicious ovarian lesion. Fluid density cystic lesion within the cervix measuring up to 4.2 cm likely represents a large nabothian cyst. Bladder: Unremarkable. Pelvic Nodes: No enlarged lymph nodes. Miscellaneous: No hernias are seen. Bones: No acute abnormality or suspicious osseous lesion. IMPRESSION: No acute intra-abdominal/pelvic abnormality. Large cervical nabothian cyst measuring 4.2 cm. Dictated by: Ramos Morillo D.O. on 12/25/2022 at 15:53 Approved by: Ramos Morillo D.O. on 12/25/2022 at 15:57
[2022-12-25] MEDS: SODIUM CHLORIDE 0.9% 1,000 ML 1000 ML IV (16:21)
--- NOTE | 2022-12-25 17:19 | ED.ABDPAIN ---
HPI - Abdominal Pain General Chief Complaint: Abdominal Pain Stated Complaint: abd upper right pain Time Seen by Provider: 12/25/22 15:41 Source: patient Mode of arrival: Family Vehicle History of Present Illness HPI narrative: Patient is a 37-year-old female history of acid reflux presenting today with right upper quadrant pain. She says it started suddenly around 4:00 a.m. comes and goes in waves but has been fairly constant over the last 8 hours. Mild nausea no significant vomiting. No fever chills painful frequent urination. She is no real flank pain. She reports that she ate pizza last night. She has a history of kidney stones while being but this does not feel quite like that. Related Data Previous Rx's Medication Instructions Recorded norethindrone (contraceptive) 0.35 See Rx Instructions .Route 10/04/21 mg tablet .COMPLEX #84 tabs ondansetron 4 mg disintegrating 4 mg PO Q8H PRN nausea and 03/09/22 tablet vomiting #10 tabs Allergies Allergy/AdvReac Type Severity Reaction Status Date / Time hydrocodone AdvReac Intermediate vomiting Verified 07/06/22 12:22 Review of Systems Review of Systems ROS Unobtainable: All systems reviewed & are unremarkable except as noted in HPI and below Patient History Medical History Anxiety Asthma Bronchitis Depression Former smoker GERD (gastroesophageal reflux disease) (~2017) Migraines Mitral valve prolapse (~2014) Spontaneous vaginal delivery Surgical History History of mandibular surgery (~2018) History of placement of ear tubes [place] teeth extracted (~2006) Family History Mother Twin , mate stillborn Anxiety Depression Paranoid schizophrenia COPD (chronic obstructive pulmonary disease) Former smoker Adopted person Father COPD (chronic obstructive pulmonary disease) Smoker Grandmother Unknown family medical history Grandfather Unknown family medical history Grandmother Ovarian cancer Grandfather Unknown family medical history Family/Other Diabetes mellitus Brother Asthma Social History marital status: household members: spouse lives independently: Yes caregiver/support person: No housing: house pets and animals: No education level: college (AA degree.) occupational status: unemployed current occupational exposures/hazards: No special polo needs: No seatbelt use: always do you feel safe at home: Yes Smoking Status: Never smoker Tobacco: How many years used: 6 quit status: has quit before second hand exposure: No alcohol intake: former (Rare to occasional when not . ) substance use type: marijuana (Quit with .) during the past year weight has: remained stable well-balanced diet: daily or most days daily servings fruits/ve-4 caffeine: No Type(s) of exercise: walking, other (Stretches on exercise ball. ) and normal ROM and activity frequency: daily duration: 15-30 minutes/day Smoking Status: Never smoker alcohol intake frequency: holidays/special occasions only Substance Use Type: marijuana Exam Initial Vital Signs Initial Vital Signs: Vital Signs Temperature 97.5 F L 12/25/22 13:03 Pulse Rate 85 12/25/22 13:03 Respiratory Rate 18 12/25/22 13:03 Blood Pressure 104/68 12/25/22 13:03 Pulse Oximetry 99 12/25/22 13:03 Oxygen Delivery Method Room Air 12/25/22 13:03 GENERAL: Alert pleasant well-appearing 37-year-old female and in no acute distress. HEENT: Head atraumatic,EOMI, pupils reactive, face symmetric, moist mucous membranes CARDIOVASCULAR: Regular rate and rhythm without murmurs, rubs or gallops. RESPIRATORY: Breath sounds equal bilaterally, no wheezes rales or rhonchi. ABDOMEN: Soft, mild right upper quadrant pain no guarding no rebound no epigastric pain : No CVA tenderness EXTREMITIES: Normal range of motion, no clubbing or edema. Neurovascularly intact NEUROLOGICAL: Alert and oriented x4. SKIN: Warm, dry, no laceration, no petechiae, no rashes or lesions. Course Orders Ordered: ED Orders 12/25/22 13:41 Complete Blood Count AUTO DIFF Stat Comprehensive Metabolic Panel Stat Lipase Stat 12/25/22 14:05 Urine Culture Stat Urine Microscopic Stat 12/25/22 15:41 CT abdomen pelvis w con Stat Discontinued Medications Sodium Chloride (Normal Saline 0.9%) 1,000 mls @ 1,000 mls/hr IV BOLUS ONE Stop: 12/25/22 17:19 Last Infusion: 12/25/22 17:31 Dose: 0 mls/hr Documented By: Admin: 12/25/22 16:21 Dose: 1,000 mls/hr Documented By: GERALD Ketorolac Tromethamine (Ketorolac 30 Mg/Ml Vial) 15 mg IV NOW ONE Stop: 12/25/22 15:32 Last Admin: 12/25/22 15:37 Dose: 15 mg Documented By: GERALD Ondansetron HCl (Ondansetron 4 Mg Odt) 4 mg PO NOW PRN PRN Reason: Nausea And Vomiting Ondansetron HCl (Ondansetron 4 Mg/2 Ml Inj) 4 mg IV NOW PRN PRN Reason: Nausea And Vomiting Last Admin: 12/25/22 13:48 Dose: 4 mg Documented By: DIPAK Vital Signs Vital signs: Vital Signs - 8 hr 12/25/22 13:03 12/25/22 15:16 12/25/22 15:16 Temperature 97.5 F L Pulse Rate 85 63 Respiratory Rate 18 Blood Pressure 104/68 111/62 Pulse Oximetry 99 96 Oxygen Delivery Method Room Air 12/25/22 15:30 12/25/22 15:30 12/25/22 16:00 Temperature Pulse Rate 58 L Respiratory Rate Blood Pressure 99/55 L 98/59 L Pulse Oximetry 99 Oxygen Delivery Method 12/25/22 16:00 12/25/22 16:14 12/25/22 16:14 Temperature Pulse Rate 57 L 83 Respiratory Rate Blood Pressure 118/69 Pulse Oximetry 100 100 Oxygen Delivery Method 12/25/22 16:30 12/25/22 16:30 12/25/22 17:00 Temperature Pulse Rate 70 Respiratory Rate 16 Blood Pressure 102/55 L 102/61 Pulse Oximetry 98 Oxygen Delivery Method 12/25/22 17:00 12/25/22 17:30 12/25/22 17:30 Temperature Pulse Rate 69 61 Respiratory Rate 17 18 Blood Pressure 106/63 Pulse Oximetry 100 99 Oxygen Delivery Method MDM - Abdominal Pain Lab Data 12/25/22 13:41 12/25/22 13:41 Labs: Lab Results 12/25/22 12/25/22 12/25/22 Range/Units 13:41 13:41 14:05 WBC 5.9 (4.5-11.0) X10^3/uL RBC 4.88 (4.0-5.2) X10^6/uL Hgb 14.3 (12.0-16.0) g/dL Hct 42.4 (36-46) % MCV 86.9 (80-100) fL MCH 29.2 (26-34) PG MCHC 33.7 (30-36) % RDW 13.5 (11.6-14.8) % Plt Count 208 (150-400) X10^3/uL Neut % (Auto) 55.2 (50-75) % Lymph % (Auto) 35.4 (25-40) % [place] % (Auto) 8.1 (3-14) % Eos % (Auto) 0.6 L (2-4) % Baso % (Auto) 0.7 (0-2) % Neut # (Auto) 3300 (0291-4097) /uL Lymph # (Auto) 2100 (9567-1202) /uL [place] # (Auto) 500 (0-900) /uL Eos # (Auto) 0 (0-450) /uL Baso # (Auto) 0 (0-100) /uL Sodium 137 (137-145) mmol/L Potassium 3.5 (3.4-5.1) mmol/L Chloride 106 (98-107) mmol/L Carbon Dioxide 23 (22-32) mmol/L BUN 13 (7-17) mg/dL Creatinine 0.73 (0.52-1.04) mg/dL Estimated GFR > 60 (>60) mL/min BUN/Creatinine Ratio 17.8 (6-22) Glucose 87 (70-100) mg/dL Calcium 9.1 (8.4-10.2) mg/dL Total Bilirubin 1.2 (0.2-1.3) mg/dL AST 23 (14-36) IU/L ALT 18 (<35) IU/L Alkaline Phosphatase 54 (38-126) U/L Total Protein 7.3 (6.3-8.2) g/dL Albumin 4.5 (3.5-5.0) g/dL Globulin 2.8 (1.7-4.1) g/dL Albumin/Globulin Ratio 1.6 (1.0-2.8) Lipase 76 (23-300) U/L Urine RBC None seen (0-5/HPF) Urine WBC 5-10/hpf H (0-5/HPF) Ur Squamous Epith Cells 1-5 /hpf (0-5/HPF) Urine Bacteria Moderate (10-30) H (None) Ur Culture Indicated? Specimen cultured Point of care testing: Point of Care Testing Test Results Negative Urine Dip Bedside Urine Glucose Negative Bedside Urine Bilirubin + 1 Bedside Urine Ketone + 15 Urine Specific [place] 1.015 Bedside Urine Occult Blood - Negative Bedside Urine pH 6.5 Bedside Urine Protein +/- 15 Bedside Urine Urobilinogen - Negative Bedside Urine Nitrite - Negative Bedside Urine Leukocytes ++ [address] scan - abdomen/pelvis: Radiologist's Impression: PROCEDURE:? CT ABDOMEN PELVIS W CON ? INDICATIONS:? Right sided pain ? TECHNIQUE:? After the administration of intravenous contrast, axial sections acquired from the lung bases to the pubic symphysis.? Coronal and sagittal reformats were performed.? For radiation dose reduction, the following was used:? automated exposure control, adjustment of mA and/or kV according to patient size.? ? COMPARISON:? None. ? FINDINGS:? Image quality:? Excellent.? ? Lung bases:? Unremarkable. Heart:? No significant findings. ? ABDOMEN: Liver:? Subcentimeter hypodensity within the dome of the left hepatic lobe too small to further characterize but likely represents a hepatic cyst.? This is of unlikely clinical significance.? Liver is otherwise normal.? Gallbladder:? Unremarkable Biliary ducts:? Unremarkable.? ? Pancreas:? Unremarkable.? ? Spleen:? Unremarkable.? ? Adrenal Glands:? Unremarkable.? ? Kidneys and Ureters:? Unremarkable.? ? ? Stomach and Bowel:? Stomach, small bowel loops, and colon are unremarkable.? Appendix is normal. Peritoneum:? No abnormal intraperitoneal fluid.? No free air.? ? Ventral Wall: ? No hernias.? Abdominal Nodes:? No retroperitoneal or mesenteric adenopathy by size criteria.? Vessels:? Aorta and inferior vena cava are normal in size.? ? PELVIS: Pelvic Organs:? Uterus is unremarkable.? No suspicious ovarian lesion.? Fluid density cystic lesion within the cervix measuring up to 4.2 cm likely represents a large nabothian cyst. Bladder:? Unremarkable.? ? Pelvic Nodes: No enlarged lymph nodes.? Miscellaneous: No hernias are seen. ? ? ? Bones:? No acute abnormality or suspicious osseous lesion. ? ? IMPRESSION:? ? No acute intra-abdominal/pelvic abnormality. ? Large cervical nabothian cyst measuring 4.2 cm. ? ? Dictated by: Ramos Morillo D.O. on 12/25/2022 at 15:53 ? [facility] Narrative Medical decision making narrative: Patient is a 37-year-old female presenting today with right upper quadrant pain after eating pizza last night. She is feeling better after Toradol. She is no leukocytosis elevated bilirubin liver enzymes or lipase. CT does not show any cholelithiasis nephrolithiasis appendicitis diverticulitis. It does show a cervical cyst which is likely an incidental finding. She is noted to have slightly low blood pressure 98-105 systolic she reports that her blood pressure is normally pretty low she is not sure what it is. She is not symptomatic with this blood pressure so I suspect that it is her normal. She also noted to have leukocytes in her urine but has no painful or frequent urination unlikely to be causing her pain in her right lower quadrant. She denies any abnormal vaginal discharge. I suspect that she has had biliary colic after eating pizza. Recommend outpatient HIDA scan if she continues to have pain may also require ultrasound of right upper quadrant. Discharge Plan Departure Patient Disposition: Home Clinical Impression: Gallbladder colic Instructions: DI for General Gallbladder Conditions, DI for HIDA Scan Activity Restrictions/Additional Instructions: *You have been diagnosed with gallbladder colic *What to do: At this time I suspect that you are having some gallbladder like pain. You may need an outpatient HIDA scan if you continue to have issues. *Continue to take medications as directed Tylenol 1000 mg every 4-6 hours if needed for [id number] pain Motrin 600 mg every 6 hours if needed for [id number] pain *Follow up with your primary care provider in 2-3 days or call [phone] *Return to ER if you should have increasing pain fever vomiting or any new, worsening or concerning symptoms Prescriptions: No Action ondansetron 4 mg tablet,disintegrating 4 mg PO Q8H PRN (Reason: nausea and vomiting) Qty: 10 0RF norethindrone (contraceptive) 0.35 mg tablet See Rx Instructions .ROUTE .COMPLEX Qty: 84 3RF Dose Instruction: TAKE 1 TABLET BY MOUTH DAILY Rx Instructions: TAKE 1 TABLET BY MOUTH DAILY Referrals: Miscellaneous,Doctor, MD [Primary Care Provider] - Stand Alone Forms: Patient Portal/API
== END 2022-12-25 17:45 | disposition home or self-care (01) ==
PROVIDERS: Emergency Provider Emergency Medicine
DX: K80.20 Calculus of gallbladder without cholecystitis without obstruction (principal); R11.0 Nausea
CPT/HCPCS: 36415; 74177; 80053; 81003; 81015; 81025; 83690; 85025; 87086; 96361; 96374; 96375; 99284; J1885; J2405; Q9967